=== PATIENT | female | born 1975 | race Caucasian/White ===

== ENCOUNTER 2020-03-11 14:14 | Outpatient (CLI) | payer MEDICARE, MEDICAID, SELFPAY ==
--- NOTE | ~2020-03-11 | XR_ITS ---
EXAMINATION: XR lumbar spine 2-3V DATE: 03/11/2020 14:59 INDICATION: Lumbar radiculopathy. TECHNIQUE: 3 views of lumbar spine were obtained. COMPARISON: Chest 2 views 01/07/2019 FINDINGS: There is 6 degrees levocurvature of lumbar spine. S1 is a transitional segment. Vertebral b andrea heights are normal. There is mildly decreased disc height at L4-L5 and severely decreased disc he ight at L5-S1. There is multilevel mild to moderate facet joint osteoarthritis. IMPRESSION: 1. Severe lower lumbar spondylosis. Reviewed, dictated and finalized at location B.
== END 2020-03-11 14:15 | disposition home or self-care (01) ==
LOC: CHSIMG 14:19
PROVIDERS: PCP Family Medicine; Visit Provider Family Medicine
DX: M54.16 Radiculopathy, lumbar region (principal)
CPT/HCPCS: 72100

== ENCOUNTER → 2020-03-20 12:05 | Outpatient (CLI) | payer MEDICARE, MEDICAID, SELFPAY ==
--- NOTE | ~2020-03-20 | MR_ITS ---
EXAMINATION: MR lumbar spine wo/w con DATE: 03/20/2020 13:45 INDICATION: Multiple sclerosis. Lumbar radiculopathy. TECHNIQUE: Magnetic resonance imaging (MRI) of the lumbar spine was performed without and with 18 mL Multihance intravenous contrast. Sequences included sagittal T2-weighted FSE, sagittal T2-weighted FS FSE, and sagittal and axial T1-weighted FSE. Postcontrast sequences included axial T2-weighted FSE, sagittal T1-weighted FSE, and axial and sagittal T1-weighted FS FSE. COMPARISON: Lumbar spine radiographs dated 03/11/2020 and chest radiograph dated 01/07/2019 FINDINGS: Transitional thoracolumbar and lumbosacral segments. The thoracolumbar segment which for purposes of this report will be designated T12 and has a hypoplastic right-sided riblet. Lumbosacral segment whic h for purposes of this report will be designated S1 is lumbarized on the right. There are 4 interveni ng nonrib-bearing lumbar segments, L2-L5. 1 mm retrolisthesis L2 on L3, 2 mm retrolisthesis L3 on L4 and 1-2 mm retrolisthesis L4 on L5. Vertebral body heights are normal. Mild disc height loss at L4-L5 with right-sided fibrovascular degenerative endplate changes. Severe disc height loss at L5-S1 with fibrofatty degenerative endplate changes. The more cephalad discs are normal. Otherwise normal marrow signal. The conus medullaris terminates at L1-L2. There is normal signal in the caudal spinal cord. No abnormally enhancing cord lesions identified. There is mild feathery muscular edema and enhancemen t in the right posterior paraspinal musculature at the level of L3-L4. The following disc levels are specifically discussed: L1-L2: The disc does not extend beyond the endplate margin. There is minimal bilateral facet joint os teoarthritis. There is no neural foraminal stenosis. There is no central canal stenosis. L2-L3: The disc does not extend beyond the endplate margin. There is minimal left and mild right face t joint osteoarthritis. There is no neural foraminal stenosis. There is no central canal stenosis. L3-L4: Small left foraminal disc protrusion. There is mild left and mild to moderate right facet join t osteoarthritis. There is mild left neural foraminal stenosis. There is no central canal stenosis. L4-L5: Disc is mildly bulging with superimposed disc extrusion which extends from the left paracentra l to the right foraminal zone with disc material extending approximately 3 mm cephalad and caudal to the level of the endplates. There is mild bilateral facet joint osteoarthritis. There is mild left an d mild to moderate right neural foraminal stenosis. There is moderate central canal stenosis. There i s narrowing of the lateral recesses, right greater than left with compression of the traversing right L5 nerve root and mild mass effect upon the traversing left L5 nerve root. L5-S1: Disc is bulging with annular fissure. There is mild right and mild to moderate left facet join t osteoarthritis. There is moderate bilateral neural foraminal stenosis. There is mild central canal stenosis along with narrowing of the left and right lateral recesses mild mass effect upon the dayanara sing bilateral S1 nerve roots. IMPRESSION: 1. Transitional thoracolumbar and lumbosacral segments. For purposes of this report numbered T12 and S1. 2. Moderate to severe lower lumbar spondylosis including large disc extrusion at L4-L5 which compress es the traversing right L5 nerve root. Correlate clinically for muscle weakness of great toe extensio n and sensory change of the medial foot and great toe. Less severe mass effect upon the left L5 and b ilateral S1 nerve roots. 3. No cord lesions identified on either pre or postcontrast sequences. 4. Nonspecific mild mesenteric edema and enhancement in the right paraspinal musculature at the level of L4-L5. Correlate for history of either muscle strain, trauma or injection at this location. Alter
[2020-03-20 12:48] LABS: Estimated Glomerular Filt Rate > 60
== END ==
PROVIDERS: Visit Provider Internal Medicine
DX: G35 Multiple sclerosis (principal); M47.26 Other spondylosis with radiculopathy, lumbar region
CPT/HCPCS: 72158; A9577

== ENCOUNTER 2020-04-10 13:19 | Outpatient (CLI) | payer MEDICARE, MEDICAID, SELFPAY ==
--- NOTE | ~2020-04-10 | XR_ITS ---
EXAMINATION: XR hip RT min 2V DATE: 04/10/2020 14:00 INDICATION: Right hip pain. TECHNIQUE: 2 views of right hip were obtained. COMPARISON: None. FINDINGS: Bone alignment is normal. No fracture. There is mild right hip osteoarthritis. There is sev ere lumbar spondylosis. IMPRESSION: 1. Mild right hip osteoarthritis. Reviewed, dictated and finalized at location A.
== END 2020-04-10 13:20 | disposition home or self-care (01) ==
LOC: CHSIMG 13:23
PROVIDERS: PCP Internal Medicine; Visit Provider Internal Medicine
DX: R10.2 Pelvic and perineal pain (principal)
CPT/HCPCS: 73502

== ENCOUNTER 2020-04-12 08:36 | Outpatient (CLI) | payer MEDICARE, MEDICAID, SELFPAY ==
--- NOTE | ~2020-04-12 | CT_ITS ---
EXAMINATION: CT pelvis w con DATE: 04/12/2020 09:39 INDICATION: Right-sided pelvic pain TECHNIQUE: Computed tomography (CT) of the pelvis was performed with 100 cc Omnipaque 350 intravenous contrast. The dose-length product was 834.53 mGy-cm. Automated exposure control and iterative recons truction technique were employed. COMPARISON: None FINDINGS: There is free fluid in the pelvic cul-de-sac, likely physiologic. Bowel pattern is nonobstr uctive. No significant vascular abnormality. No lymphadenopathy. Bladder is unremarkable. There is mi ld endometrial thickening. No free air. Mild osteoarthritis of the hips. There is lower lumbar spondy losis. IMPRESSION: 1. No acute abnormality of the pelvis. Free fluid in the pelvic cul-de-sac, likely physiologic. Reviewed, dictated and finalized at location A. IMPRESSION: 1. No acute abnormality of the pelvis. Free fluid in the pelvic cul-de-sac, lik dejuan physiologic.
== END 2020-04-12 08:37 | disposition home or self-care (01) ==
LOC: CHSIMG 08:38
PROVIDERS: PCP Internal Medicine; Visit Provider Internal Medicine
DX: R10.2 Pelvic and perineal pain (principal); M25.551 Pain in right hip
CPT/HCPCS: 72193; Q9965

== ENCOUNTER 2020-08-29 09:56 | Outpatient (CLI) | payer MEDICARE, SELFPAY ==
[2020-08-29 11:05] LABS: SARS-CoV-2 Ag Negative (Negative)
[2020-08-30 18:19] LABS: SARS-CoV-2 RNA PCR Negative
== END 2020-08-29 09:57 | disposition home or self-care (01) ==
LOC: CHSLAB 10:32
PROVIDERS: PCP Internal Medicine; Visit Provider Internal Medicine
DX: Z20.822 Contact with and (suspected) exposure to COVID-19 (principal)
CPT/HCPCS: 87426; C9803; U0003; U0005

== ENCOUNTER 2020-09-16 08:57 | Outpatient (CLI) | payer MEDICARE, SELFPAY ==
[2020-09-16 22:12] LABS: SARS-CoV-2 RNA PCR Negative
== END 2020-09-16 08:58 | disposition home or self-care (01) ==
LOC: CHSLAB 08:58
PROVIDERS: PCP Internal Medicine; Visit Provider Internal Medicine
DX: Z20.822 Contact with and (suspected) exposure to COVID-19 (principal)
CPT/HCPCS: C9803; U0003; U0005

== ENCOUNTER 2020-09-28 13:50 | Emergency (ER) | payer MEDICARE, MEDICAID, SELFPAY ==
--- NOTE | ~2020-09-28 | CT_ITS ---
EXAMINATION: CT brain wo con DATE: 09/28/2020 14:57 INDICATION: Headache TECHNIQUE: Computed tomography (CT) of the head was performed without intravenous contrast. The dose- length product was 605.33 mGy-cm. Automated exposure control and iterative reconstruction technique w ere employed. COMPARISON: None FINDINGS: Generalized atrophy. There are scattered moderate periventricular and subcortical white mat ter changes. Consider the patient's age, consider demyelinating disease such as multiple sclerosis. N o ventriculomegaly or midline shift. Paranasal sinuses and mastoids are pneumatized. No depressed sku ll fractures. No acute infarction, hemorrhage or mass. Midline sagittal images are unremarkable. IMPRESSION: 1. Periventricular and subcortical white matter changes, suspicious for demyelinating disorder such a s multiple sclerosis given the patient's age. Correlate clinically. Consider correlation with MRI on a nonemergent basis. 2: No acute intracranial abnormality. Reviewed, dictated and finalized at location A. HOSE CUTTER IMPRESSION: 1. Periventricular and subcortical white matter changes, suspicious for demyeli nating disorder such as multiple sclerosis given the patient's age. Correlate c linically. Consider correlation with MRI on a nonemergent basis. 2: No acute intracranial abnormality.
[2020-09-28 13:58] VITALS: BP 119/75; PULSE 83; RESP 20; TEMP 36.7; O2SAT 95
[2020-09-28 14:45] LABS: Basophils Absolute Auto 0.1 K/mm3 (0.0-0.1); Basophils Percent Auto 0.4 % (0.2-1.2); Eosinophils Absolute Auto 0.1 K/mm3 (0-0.3); Eosinophils Percent Auto 0.2 % (0-4.4); Hematocrit 38.1 % (37.0-47.0); Hemoglobin 12.7 g/dL (12.0-15.0); Immature Granulocyte Absolute 0.19 K/mm3 (0.00-0.031); Immature Granulocyte Percent A 0.8 % (0-0.5); Lymphocytes Absolute Auto 1.54 K/mm3 (0.9-3.2); Lymphocytes Percent Auto 6.3 % (18.3-44.2); Mean Corpuscular HGB Conc 33.3 g/dl (32-36); Mean Corpuscular Hemoglobin 30.8 pg (26-34); Mean Corpuscular Volume 92.5 fl (80-100); Mean Platelet Volume 9.9 fl (7.4-10.4); Monocytes Absolute Auto 1.6 K/mm3 (0.1-0.6); Monocytes Percent Auto 6.6 % (2.6-8.5); Neutrophils Percent Auto 85.7 % (45.5-73.1); Platelet Count Result 328 k/mm3 (150-375); Red Blood Count 4.12 M/mm3 (4.2-5.4); Red Cell Distribution Width 13.8 % (11.5-14.5); White Blood Count 24.5 K/mm3 (4.5-10.0)
[2020-09-28 14:57] LABS: Alanine Aminotransferase 27 U/L (4-35); Alkaline Phosphatase 63 U/L (38-126); Anion Gap 7 mmol/L (8-16); Aspartate Amino Transferase 24 U/L (14-36); Bilirubin,Total 0.5 mg/dL (0.2-1.3); Blood Urea Nitrogen 15 mg/dL (7-17); Calcium 8.5 mg/dL (8.4-10.2); Carbon Dioxide 26 mmol/L (22-30); Chloride 107 mmol/L (98-107); Estimated CRCL calculation 118 ml/min; Estimated Glomerular Filt Rate > 60; Glucose 113 mg/dL (65-105); Potassium 3.4 mmol/L (3.4-5.0); Sodium 140 mmol/L (137-145)
[2020-09-28] MEDS: KETOROLAC 30 MG/ML VIAL (*BKC) IV PUSH (15:18)
[2020-09-28] MEDS: ONDANSETRON INJ 4 MG/2 ML VIAL IV PUSH (15:19)
[2020-09-28] MEDS: SODIUM CHLORIDE 0.9% IV 1,000 ML 150 ML IV CONT (15:19)
[2020-09-28 15:21] LABS: Add Urine Microscopic? YES; Appearance Urine Clear (Clear); Bilirubin Urine Negative (Negative); Blood Urine Negative (Negative); Color Urine Yellow (Yellow); Glucose Urine UA Negative (Negative); Ketones Urine Negative (Negative); Leukocyte Esterase Ur Negative LEU/UL (Negative); Mucus Urine Rare /lpf; Nitrate Urine Negative (Negative); Protein Urine 1+ mg/dL (Negative); RBC Urine 0-2 /hpf (0-2); Specific Grav Ur 1.024 (1.001-1.035); Squamous Epithelial Cell Urine Rare /hpf (Few); Urobilinogen Urine Negative mg/dL (<2.0); WBC Urine 0-3 /hpf
[2020-09-28 15:44] VITALS: BP 108/68; PULSE 71; RESP 14; O2SAT 93
[2020-09-28 15:48] VITALS: TEMP 36.7
[2020-09-28] MEDS: MORPHINE SULFATE (*CRX) 4 MG/ML INJ IV PUSH (16:09)
[2020-09-28] MEDS: SODIUM CHLORIDE 0.9% IV 1,000 ML 999 ML IV CONT (16:10)
[2020-09-28 16:39] VITALS: TEMP 36.7
--- NOTE | 2020-09-28 17:30 | ED.GENADULT ---
HPI - General Adult General Chief complaint: Headache Stated complaint: fever since last night, threw up x1 Time Seen by Provider: 09/28/20 14:18 Source: patient and family Mode of arrival: ambulatory Limitations: no limitations History of Present Illness HPI narrative: 45-year-old with a history of MS here with a complaint of headache with nausea vomiting. Patient states that she had received epidural block on September 20 at [facility] in [facility] since yesterday been having headaches , pt states gets worse when she is sitting up.she denies any fever . Related Data Home Medications Medication Instructions Recorded Confirmed albuterol sulfate [ProAir HFA] 2 puff INHALATION QID PRN 09/28/20 baclofen 10 mg PO TID 09/28/20 bupropion HCl 300 mg PO QAM 09/28/20 cephalexin 250 mg PO HS 09/28/20 clonazepam 0.5 mg PO TID 09/28/20 dalfampridine [Ampyra] 10 mg PO Q12H 09/28/20 fludrocortisone 0.2 mg PO BID 09/28/20 fluoxetine 120 mg PO DAILY 09/28/20 gabapentin 300 mg PO QID 09/28/20 lorazepam 0.5 mg PO TID PRN 09/28/20 methylphenidate HCl 20 mg PO TID 09/28/20 mirtazapine 60 mg PO HS 09/28/20 montelukast 10 mg PO HS 09/28/20 oxybutynin chloride 15 mg PO DAILY 09/28/20 oxycodone-acetaminophen 1 tablet PO Q6H PRN 09/28/20 pregabalin [Lyrica] 100 mg PO TID 09/28/20 tamsulosin 0.8 mg PO DAILY 09/28/20 tizanidine 4 mg PO TID 09/28/20 topiramate 25 mg PO BID 09/28/20 Allergies Allergy/AdvReac Type Severity Reaction Status Date / Time No Known Allergies Allergy Verified 09/28/20 14:03 Review of Systems Review of Systems: All systems reviewed & are unremarkable except as noted in HPI and below Constitutional: Constitutional: Reports no additional constitutional complaints Eyes: Eyes: Reports no additional eye complaints ENT: Reports system reviewed and no additional complaints, except as documented Cardiovascular: Cardiovascular: Reports no additional cardiovascular complaints Respiratory: Respiratory: Reports no additional respiratory complaints Gastrointestinal: Gastrointestinal: Reports no additional gastrointestinal complaints Genitourinary: Genitourinary: Reports no additional female genitourinary complaints Musculoskeletal: Musculoskeletal: Reports no additional musculoskeletal complaints Neurologic: Reports as per [facility] Social History Social History Gender identity (if verbalized by the patient): Female Exam Narrative: Exam Narrative: GENERAL: Well-appearing, well-nourished, and in no acute distress. HEAD: Normocephalic, atraumatic. EYES: PERRLA and EOMI. ENT: Nares clear, no rhinorrhea or epistaxis. Mucous membranes moist. NECK: Supple. CHEST: Clear to auscultation. No respiratory distress. HEART: Regular rate and rhythm. No murmur heard. Normal peripheral pulses. ABDOMEN: Soft, nontender, nondistended, normal active bowel sounds. EXTREMITIES: Normal range of motion. No edema. SKIN: Warm, dry, no rash. NEURO: No focal deficits. Alert and oriented x3. PSYCH: Normal mood and affect. Course Course Emergency Course: I discussed with Dr. Domo krueger informed him about the lab work patient did receive about 80 mg of steroids with epidural lab most likely her elevation of white count could be from the steroid , patient did feel better after 2 L of IV fluid and pain medication. He said he will follow with the patient on Wednesday in his office. Vital Signs Vital signs: Vital Signs Temperature 36.7 C 09/28/20 13:58 Pulse Rate 83 09/28/20 13:58 Respiratory Rate 20 09/28/20 13:58 Blood Pressure 119/75 09/28/20 13:58 Pulse Oximetry 95 09/28/20 13:58 Temperature 36.7 C 09/28/20 16:39 Pulse Rate 71 09/28/20 17:32 Respiratory Rate 16 09/28/20 17:32 Blood Pressure 111/72 09/28/20 17:32 Pulse Oximetry 95 09/28/20 17:32 Medical Decision Making MDM Narrative Medical decision
[2020-09-28 17:32] VITALS: BP 111/72; PULSE 71; RESP 16; O2SAT 95
== END 2020-09-28 17:56 | disposition home or self-care (01) ==
PROVIDERS: Emergency Provider Family Medicine; PCP Internal Medicine
DX: R51.9 Headache, unspecified (principal); D72.829 Elevated white blood cell count, unspecified; G35 Multiple sclerosis
CPT/HCPCS: 36415; 51701; 70450; 80053; 81001; 85025; 96361; 96374; 96375; 99284; J1100; J1885; J2270; J2405; J7030

== ENCOUNTER 2020-10-17 09:26 | Outpatient (CLI) | payer MEDICARE, MEDICAID, SELFPAY ==
--- NOTE | ~2020-10-17 | XR_ITS ---
XR chest 2V 10/17/2020 09:55 Indication: Pneumonia follow-up Procedure: 2 view chest Comparison: 01/07/2019 Findings: There is right middle lobe atelectasis. No focal pneumonia, pleural effusion, edema or pneu mothorax. No acute osseous abnormality. Heart size is normal. Impression: 1: Right middle lobe atelectasis. Reviewed, dictated and finalized at location B. Impression: 1: Right middle lobe atelectasis.
[2020-10-17 09:39] LABS: Basophils Absolute Auto 0.11 K/mm3 (0.00-0.10); Basophils Percent Auto 1.5 % (0.0-1.0); Eosinophils Percent Auto 2.8 % (1.0-6.0); Hematocrit 37.5 % (35.0-49.0); Hemoglobin 11.8 g/dL (12.0-15.0); Immature Granulocyte Absolute 0.01 K/mm3 (0.00-0.00); Immature Granulocyte Percent A 0.1 % (0.0-0.0); Lymphocytes Absolute Auto 2.91 K/mm3 (1.10-4.50); Lymphocytes Percent Auto 40.8 % (18.0-42.0); Mean Corpuscular HGB Conc 31.5 g/dL (32.0-36.0); Mean Corpuscular Hemoglobin 29.8 pg (27.0-31.0); Mean Corpuscular Volume 94.7 fL (78.0-102.0); Mean Platelet Volume 9.1 fl (9.2-11.8); Monocytes Absolute Auto 0.62 K/mm3 (0.10-0.90); Monocytes Percent Auto 8.7 % (2.0-11.0); Neutrophils Absolute Auto 3.3 K/mm3 (1.7-7.2); Neutrophils Percent Auto 46.1 % (50.0-70.0); Platelet Count Result 442 K/mm3 (150-420); Red Blood Count 3.96 M/mm3 (4.20-5.40); Red Cell Distribution Width 13.6 % (11.6-14.4); White Blood Count 7.1 K/mm3 (4.8-10.8)
[2020-10-17 10:22] LABS: Alanine Aminotransferase 47 U/L (14-59); Albumin Level 3.6 g/dL (3.4-5.0); Alkaline Phosphatase 89 U/L (46-116); Anion Gap 8 mmol/L (8-16); Aspartate Amino Transferase 19 U/L (15-37); Bilirubin,Total 0.3 mg/dL (0.00-1.00); Blood Urea Nitrogen 12 mg/dL (7-18); Calcium 8.6 mg/dL (8.5-10.1); Carbon Dioxide 27 mmol/L (21-32); Chloride 105 mmol/L (98-108); Estimated Glomerular Filt Rate > 60; Glucose 82 mg/dL (70-99); Osmolality Calculated 288 mOsm/kg (285-295); Potassium 4.2 mmol/L (3.5-5.1); Sodium 140 mmol/L (136-145); Total Protein 6.9 g/dL (6.4-8.2)
== END 2020-10-17 09:27 | disposition home or self-care (01) ==
LOC: CHSIMG 09:30
PROVIDERS: PCP Internal Medicine; Visit Provider Internal Medicine
DX: J18.9 Pneumonia, unspecified organism (principal)
CPT/HCPCS: 36415; 71046; 80053; 85025

== ENCOUNTER 2020-10-22 08:23 | Outpatient (CLI) | payer MEDICARE, MEDICAID, SELFPAY ==
--- NOTE | ~2020-10-22 | XR_ITS ---
EXAMINATION: XR barium swallow DATE: 10/22/2020 09:09 INDICATION: Aspiration pneumonia. Multiple sclerosis. TECHNIQUE: The patient drank thick barium, gas-producing crystals, and thin barium. Fluoroscopic spot radiographs of the hypopharynx and esophagus were obtained. Fluoroscopy exposure time was minutes. COMPARISON: None. FINDINGS: There is premature spillage of contrast into the hypopharynx with pooling of contrast in th e vallecula and piriform sinuses prior to the swallow. Recurrent transient laryngeal penetration garth g the posterior margin of the epiglottis which remains above the vocal cords without aspiration. The esophagus is normal without mass or stricture. Esophageal motility is within normal limits. There is no hiatal hernia. There was no gastroesophageal reflux with provocative maneuvers. IMPRESSION: 1. Mild oropharyngeal dysphagia with premature spillage of contrast and recurrent transient laryngeal penetration without aspiration. Would consider dedicated modified barium swallow study performed by the department of speech pathology for further evaluation including assessment with different consist encies as well as possible swallow modification techniques which may reduce the risk of aspiration. 2. Otherwise unremarkable esophagram with normal esophageal motility, no hiatal hernia and no gastroe sophageal reflux. Reviewed, dictated and finalized at location B. IMPRESSION: 1. Mild oropharyngeal dysphagia with premature spillage of contrast and recurre nt transient laryngeal penetration without aspiration. Would consider dedicated modified barium swallow study performed by the department of speech pathology for further evaluation including assessment with different consistencies as wel l as possible swallow modification techniques which may reduce the risk of aspi ration. 2. Otherwise unremarkable esophagram with normal esophageal motility, no hiatal hernia and no gastroesophageal reflux.
== END 2020-10-22 08:24 | disposition home or self-care (01) ==
LOC: CHSIMG 08:26
PROVIDERS: PCP Internal Medicine; Visit Provider Internal Medicine
DX: G35 Multiple sclerosis (principal); R13.12 Dysphagia, oropharyngeal phase
CPT/HCPCS: 74220

== ENCOUNTER 2021-11-21 10:21 | Outpatient (CLI) | payer MEDICARE, MEDICAID, SELFPAY ==
--- NOTE | ~2021-11-21 | XR_ITS ---
XR chest 2V DATE: 11/21/2021 11:09 INDICATION: Fever, cough, congestion for 3 days TECHNIQUE: PA and lateral views COMPARISON: 10/17/2020 2 view chest FINDINGS: Normal heart size. Mild aortic unfolding. No hilar or mediastinal enlargement. No pulmonary infiltrate or consolidation, pleural effusion or pulmonary vascular congestion or pneumo thorax is detected. IMPRESSION: No active cardiopulmonary disease Reviewed, dictated and finalized at location A.
[2021-11-21 11:23] LABS: Basophils Absolute Auto 0.05 K/mm3 (0.00-0.10); Basophils Percent Auto 0.7 % (0.0-1.0); Eosinophils Absolute Auto 0.13 K/mm3 (0.02-0.50); Eosinophils Percent Auto 1.8 % (1.0-6.0); Hematocrit 37.5 % (35.0-49.0); Immature Granulocyte Absolute 0.03 K/mm3 (0.00-0.00); Immature Granulocyte Percent A 0.4 % (0.0-0.0); Lymphocytes Absolute Auto 1.91 K/mm3 (1.10-4.50); Lymphocytes Percent Auto 26.5 % (18.0-42.0); Mean Corpuscular Hemoglobin 31.3 pg (27.0-31.0); Mean Corpuscular Volume 97.9 fL (78.0-102.0); Mean Platelet Volume 9.9 fl (9.2-11.8); Monocytes Absolute Auto 0.65 K/mm3 (0.10-0.90); Neutrophils Absolute Auto 4.4 K/mm3 (1.7-7.2); Neutrophils Percent Auto 61.6 % (50.0-70.0); Platelet Count Result 349 K/mm3 (150-420); Red Blood Count 3.83 M/mm3 (4.20-5.40); Red Cell Distribution Width 14.2 % (11.6-14.4); White Blood Count 7.2 K/mm3 (4.8-10.8)
[2021-11-21 11:27] LABS: Add Urine Microscopic? YES; Appearance Urine Slightly Cloudy (Clear); Bilirubin Urine Negative (Negative); Blood Urine 3+ (Negative); Color Urine Light Yellow (Yellow); Glucose Urine UA Negative (Negative); Ketones Urine Negative (Negative); Leukocyte Esterase Ur Negative (Negative); Nitrate Urine Negative (Negative); Protein Urine Negative (Negative); Specific Grav Ur <= 1.005 (1.010-1.020); Urobilinogen Urine 0.2 mg/dL (0.2-1.0)
[2021-11-21 11:37] LABS: Bacteria Urine Trace /hpf; RBC Urine 21-50 /hpf (0-2); Squamous Epithelial Cell Urine Occasional /hpf (Few); WBC Urine None seen /hpf (0-3)
[2021-11-21 11:46] LABS: Alanine Aminotransferase 18 U/L (14-59); Albumin Level 3.4 g/dL (3.4-5.0); Alkaline Phosphatase 91 U/L (46-116); Anion Gap 10 mmol/L (8-16); Aspartate Amino Transferase 15 U/L (15-37); Bilirubin,Total 0.2 mg/dL (0.00-1.00); Blood Urea Nitrogen 10 mg/dL (7-18); Calcium 8.3 mg/dL (8.5-10.1); Carbon Dioxide 23 mmol/L (21-32); Chloride 106 mmol/L (98-108); Estimated Glomerular Filt Rate > 60; Glucose 89 mg/dL (70-99); Osmolality Calculated 286 mOsm/kg (285-295); Potassium 3.3 mmol/L (3.5-5.1); Sodium 139 mmol/L (136-145); Total Protein 6.9 g/dL (6.4-8.2)
[2021-11-21 11:59] LABS: Influenza A QL RT-PCR Negative (Negative); Influenza B QL RT-PCR Negative (Negative); SARS-CoV-2 RNA PCR Negative (Negative)
== END 2021-11-21 10:22 | disposition home or self-care (01) ==
LOC: CHSLAB 10:23
PROVIDERS: PCP Internal Medicine; Visit Provider Nurse Practitioner Family
DX: J06.9 Acute upper respiratory infection, unspecified (principal); R32 Unspecified urinary incontinence; Z20.822 Contact with and (suspected) exposure to COVID-19
CPT/HCPCS: 36415; 71046; 80053; 81001; 85025; 87086; 87502; C9803; U0003; U0005

== ENCOUNTER 2022-05-16 12:40 | Emergency (ER) | payer MEDICARE, MEDICAID, SELFPAY ==
[2022-05-16 13:20] VITALS: BP 109/75; PULSE 93; RESP 16; TEMP 36.6; O2SAT 99
--- NOTE | 2022-05-16 15:20 | ED.FEMALEGU ---
HPI - Female Genitourinary General Chief complaint: Urogenital-Female Stated complaint: Urinary Problem Time Seen by Provider: 05/16/22 15:00 Source: patient, RN notes reviewed and old records reviewed Mode of arrival: other (ambulatory with walker) Limitations: no limitations History of Present Illness HPI Narrative: 47-year-old female who [facility] her urine recheck it he she had been on 6 days of Macrobid and still continues to have burning with urination would like to have her urine checked to see if infection has cleared. Patient continues to have burning, denies any odor, frequency urgency or fevers.Patient denies any fevers, chills or ausea, no CVA tenderness MD elicited complaint: UTI Onset (ago): day(s) (started on Macrobid 05/11/2022) Related Data Home Medications Medication Instructions Recorded Confirmed albuterol sulfate 90 mcg/actuation 2 puff inhalation QID PRN 09/28/20 05/16/22 aerosol inhaler (ProAir HFA) Shortness Of Breath baclofen 10 mg tablet 10 mg PO TID 09/28/20 05/16/22 bupropion HCl 300 mg 24 hr tablet, 300 mg PO QAM 09/28/20 05/16/22 extended release clonazepam 0.5 mg tablet 0.5 mg PO TID 09/28/20 05/16/22 dalfampridine 10 mg 10 mg PO Q12H 09/28/20 05/16/22 tablet,extended release,12 hr (Ampyra) fludrocortisone 0.1 mg tablet 0.2 mg PO BID 09/28/20 05/16/22 fluoxetine 40 mg capsule 120 mg PO DAILY 09/28/20 05/16/22 lorazepam 0.5 mg tablet 0.5 mg PO TID PRN Anxiety 09/28/20 05/16/22 methylphenidate HCl 20 mg tablet 20 mg PO TID 09/28/20 05/16/22 mirtazapine 30 mg tablet 60 mg PO HS 09/28/20 05/16/22 montelukast 10 mg tablet 10 mg PO HS 09/28/20 05/16/22 oxybutynin chloride 15 mg 15 mg PO DAILY 09/28/20 05/16/22 tablet,extended release 24 hr oxycodone-acetaminophen 7.5 mg-325 1 tablet PO Q6H PRN Pain 09/28/20 05/16/22 mg tablet pregabalin 100 mg capsule (Lyrica) 100 mg PO TID 09/28/20 05/16/22 tamsulosin 0.4 mg capsule 0.8 mg PO DAILY 09/28/20 05/16/22 tizanidine 4 mg capsule 4 mg PO TID 09/28/20 05/16/22 topiramate 25 mg tablet 25 mg PO BID 09/28/20 05/16/22 gabapentin 300 mg capsule 300 mg PO QID 05/16/22 05/16/22 Allergies Allergy/AdvReac Type Severity Reaction Status Date / Time No Known Allergies Allergy Verified 05/16/22 13:48 Review of Systems Review of Systems: CONSTITUTIONAL: Denies fever, chills, or sweats. CARDIOVASCULAR: Denies chest pain, palpitations, or edema. RESPIRATORY: Denies cough or dyspnea. GASTROINTESTINAL: Denies abdominal pain, nausea, vomiting, or diarrhea. GENITOURINARY: Reports dysuria, no frequency, urgency. Denies flank pain or hematuria. SKIN: Denies rash or itching. MUSCULOSKELETAL: Denies back pain or myalgia. Denies CVA tenderness NEUROLOGIC: Denies headache All systems reviewed & are unremarkable except as noted in HPI and below PMFSH Past Medical History Medical History Asthma Ataxia Multiple sclerosis Tremors of nervous system Surgical History Surgical History History of carpal tunnel surgery Hx of tonsillectomy [place] teeth removed Family History Family History Father Cancer Mother Thyroid disorder Sibling Asthma Diabetes mellitus Hypertension Depression Thyroid disorder Grandparent Heart disease Social History Social History Smoking status: Former smoker Alcohol intake: never Substance use: never Gender identity (if verbalized by the patient): Female Comments At time of signature, agree with nursing past medical, surgical, social and family history. There is no relevant family history pertinent to the presenting complaint Exam Narrative: GENERAL: Well-appearing, well-nourished, and in no acute distress. HEAD: Normocephalic, atraumatic. NECK: Supple. No
== END 2022-05-16 15:30 | disposition home or self-care (01) ==
PROVIDERS: Emergency Provider Registered Nurse
DX: R30.0 Dysuria (principal); Z87.891 Personal history of nicotine dependence; J45.909 Unspecified asthma, uncomplicated; G35 Multiple sclerosis
CPT/HCPCS: 81003; 87086; 87088; 99213; G0463

== ENCOUNTER 2022-11-27 11:10 | Outpatient (CLI) | payer MEDICARE, MEDICAID, SELFPAY ==
[2022-11-27 11:33] LABS: Basophils Absolute Auto 0.06 K/mm3 (0.00-0.10); Basophils Percent Auto 1.1 % (0.0-1.0); Eosinophils Absolute Auto 0.17 K/mm3 (0.02-0.50); Eosinophils Percent Auto 3.1 % (1.0-6.0); Hematocrit 35.9 % (35.0-49.0); Hemoglobin 11.9 g/dL (12.0-15.0); Lymphocytes Absolute Auto 2.22 K/mm3 (1.10-4.50); Lymphocytes Percent Auto 40.1 % (18.0-42.0); Mean Corpuscular HGB Conc 33.1 g/dL (32.0-36.0); Mean Corpuscular Hemoglobin 31.1 pg (27.0-31.0); Mean Corpuscular Volume 93.7 fL (78.0-102.0); Mean Platelet Volume 9.1 fl (9.2-11.8); Monocytes Absolute Auto 0.46 K/mm3 (0.10-0.90); Monocytes Percent Auto 8.3 % (2.0-11.0); Neutrophils Absolute Auto 2.6 K/mm3 (1.7-7.2); Neutrophils Percent Auto 47.4 % (50.0-70.0); Platelet Count Result 281 K/mm3 (150-420); Red Blood Count 3.83 M/mm3 (4.20-5.40); Red Cell Distribution Width 13.3 % (11.6-14.4); White Blood Count 5.5 K/mm3 (4.8-10.8)
[2022-11-27 12:27] LABS: Alanine Aminotransferase 26 U/L (14-59); Alkaline Phosphatase 54 U/L (46-116); Anion Gap 10 mmol/L (8-16); Aspartate Amino Transferase 17 U/L (15-37); Bilirubin,Total 0.3 mg/dL (0.00-1.00); Blood Urea Nitrogen 8 mg/dL (7-18); Calcium 8.8 mg/dL (8.5-10.1); Carbon Dioxide 26 mmol/L (21-32); Chloride 107 mmol/L (98-108); Estimated Glomerular Filt Rate > 60; Free T3 2.32 pg/mL (2.18-3.98); Glucose 101 mg/dL (70-99); Osmolality Calculated 294 mOsm/kg (285-295); Potassium 3.4 mmol/L (3.5-5.1); Sodium 143 mmol/L (136-145); Thyroid Stimulating Hormone 0.89 uIU/mL (0.36-3.74); Total Protein 6.7 g/dL (6.4-8.2); Vitamin B12 416 pg/mL (193-986)
[2022-12-02 04:55] LABS: FSH 86.1 mIU/mL (***); LH 34.4 mIU/mL (***); Prolactin 7.6 ng/mL (***)
[2022-12-08 08:31] LABS: Estrogen 107.4 pg/mL
== END 2022-11-27 11:11 | disposition home or self-care (01) ==
LOC: CHSLAB 11:14
PROVIDERS: PCP Internal Medicine; Visit Provider Internal Medicine
DX: R06.00 Dyspnea, unspecified (principal); E53.8 Deficiency of other specified B group vitamins; N91.2 Amenorrhea, unspecified
CPT/HCPCS: 36415; 80053; 82607; 82672; 83001; 83002; 83498; 84146; 84439; 84443; 84481; 85025

== ENCOUNTER 2022-12-10 07:48 | Outpatient (CLI) | payer MEDICARE, MEDICAID, SELFPAY ==
--- NOTE | ~2022-12-10 | XR_ITS ---
MODIFIED ESOPHAGRAM HISTORY: Dysphagia. Multiple sclerosis. TECHNIQUE: Modified barium esophagram was performed by speech pathologist under radiologist fluorosco pic guidance. This was recorded on tape. The exam was reviewed on 12/10/2022 11:36 CDT. The DAP for this procedure was 1.2 Gycm2. Fluoroscopy time is 1.9 minutes. FINDINGS: During the oral stage of swallowing there is weak labial seal. Otherwise the oral stage i s within normal limits. During pharyngeal stage of swallowing there is reduced laryngeal elevation, t ongue base retraction with evidence of laryngeal penetration with thin liquids. No aspiration.. IMPRESSION: 1: Laryngeal penetration with thin liquid during one episode. No aspiration visualized. 2: Please refer to speech pathologist report for additional detail. Reviewed, dictated and finalized at location L. IMPRESSION: 1: Laryngeal penetration with thin liquid during one episode. No aspiration vis ualized. 2: Please refer to speech pathologist report for additional detail.
--- NOTE | 2022-12-10 10:57 | REHSTMBS ---
Assessment and note entered by Larissa Mcintosh, MEDICAL EQUIPMENT REPAIR TECHNICIAN Modified Barium Swallow Evaluation Diagnosis MS, Dysphagia Subjective Information Patient reported that she has been having difficulty swallowing for years. She feels that the problem has recently gotten worse and she has been having choking episodes 1 time per week. Patient reported that she primarily has difficulty with tough textured foods including; raw vegetables, tough textured meats, nuts, breads. Patient reported that she never eats alone because she cannot anticipate having a difficulty due to variable occurrence and consistency of food. Feeding Type Recommended Oral Food Consistency Regular, Easy to Chew (7) Liquid Consistency Thin (0) Treatment Recommendations Bolus Control Exercise,Effortful Swallow,Laryngeal Elevation Ex,Tongue Base Exercise,Vocal Fold Adduction Ex. ST Clinical Summary Patient was referred for an modified barium swallow study by her primary physician due to increased difficulties swallowing solid foods. Patient reported that she has had difficulty swallowing for many years but has noticed an increase in choking recently. Patient reported that she has a choking episode on solids 1x per week. Patient was given trials of thin barium via cup, pudding, and blanco cracker (1/4 piece of cracker) during the study. Patient presented with no aspiration throughout the testing. Patient presented with coughing episode one time with thin barium but patient moved and result was not able to be seen through imaging. Patient reported that her coordination felt off through trialing chin tuck. Patient presented with laryngeal penetration (shallow) prior to the swallow with thin barium one time but it was cleared during swallow. Patient tolerated trials of pudding and blanco cracker with minimal residual stasis and no aspiration. Patient presented with delayed initiation of deglutition (4+ seconds) resulting in spillage to pyriform sinuses with thin fluids. Education with patient regarding results and compensatory techniques to utilize to improve airway protection (use of single small drinks for improved bolus control, alternation of food/fluid with 1:1 ratio for tough textured foods, effortful swallow to improve bolus clearance, upright posture during eating/drinking.) Education
== END 2022-12-10 07:49 | disposition home or self-care (01) ==
LOC: CHSIMG 07:49
PROVIDERS: PCP Internal Medicine; Visit Provider Internal Medicine
DX: R13.10 Dysphagia, unspecified (principal); R06.00 Dyspnea, unspecified; G35 Multiple sclerosis
CPT/HCPCS: 92611

== ENCOUNTER 2022-12-21 07:42 | Outpatient (CLI) | payer MEDICARE, MEDICAID, SELFPAY ==
--- NOTE | 2022-12-21 07:50 | ECHO_ITS ---
Patient Info Name: Zee Ortiz Age: 47 years : 1975 Gender: Female HR: 65 bpm BP: 151 / 65 mmHg Heart Rhythm: Sinus Rhythm Technical Quality: Good Exam Date: 12/21/2022 8:14 AM Exam Location: [facility] Patient Status: Outpatient Admit Date: 12/21/2022 Staff Ordering Physician: Jalen Avila MD [employer] Engineer: Trey Plummer RDCS Attending Provider: Jalen Avila MD Referring Physician: Austin RODAS; Exam Type: CA echo doppler color flow Study Info Indications - Dyspnea/MS Complete two-dimensional, color flow and Doppler transthoracic echocardiogram is performed. Summary 1. Complete two-dimensional, color flow and Doppler transthoracic echocardiogram is performed. 2. Left ventricular chamber dimension is normal. 3. Left ventricular systolic function is normal, estimated at 60-65%. 4. The left ventricular diastolic function is abnormal. 5. E/e' 13 is mildly elevated. 6. Left atrial chamber dimension is moderately enlarged. 7. Right atrial chamber dimension is mildly enlarged. 8. There is trace mitral valve regurgitation. 9. There is mild tricuspid valve regurgitation. 10. No pulmonary hypertension, estimated pulmonary arterial systolic pressure is 24 mmHg. Left Ventricle E/e' 13 is mildly elevated. Left ventricular chamber dimension is normal. Left ventricular systolic function is normal, estimated at 60-65%. The left ventricular diastolic function is abnormal. Right Ventricle Right ventricular chamber dimension is normal. Right ventricular systolic function is normal. Left Atria Left atrial chamber dimension is moderately enlarged. Right Atria Right atrial chamber dimension is mildly enlarged. Aortic Valve The aortic valve is trileaflet. There is no aortic valve stenosis. There is no aortic valve regurgitation. Pulmonic Valve There is no pulmonic regurgitation. Mitral Valve There is no mitral valve stenosis. There is trace mitral valve regurgitation. Tricuspid Valve There is mild tricuspid valve regurgitation. No pulmonary hypertension, estimated pulmonary arterial systolic pressure is 24 mmHg. Pericardium/Pleural There is no pericardial effusion. Inferior Vena Cava Normal inferior vena cava with >50% collapse upon inspiration consistent with normal right atrial pressure, 5 mmHg. Aorta The aortic root size at the sinus of Valsalva is normal. Left Ventricular Outflow Tract Name Value Normal LVOT 2D LVOT Diameter 2.0 cm LVOT Doppler LVOT Peak Velocity 92 cm/s LVOT Peak Gradient 3 mmHg LVOT Mean Gradient 2 mmHg LVOT VTI 26 cm LVOT VTI/AV VTI Ratio 0.9 LVOT Stroke Volume 83 ml Pulmonic Valve Name Value Normal RVOT Doppler RVOT Peak Gradient 1 mmHg PV Doppler
== END 2022-12-21 07:43 | disposition home or self-care (01) ==
LOC: CHSIMG 07:43
PROVIDERS: PCP Internal Medicine; Visit Provider Internal Medicine
DX: R13.10 Dysphagia, unspecified (principal); R06.00 Dyspnea, unspecified; G35 Multiple sclerosis; I51.7 Cardiomegaly
CPT/HCPCS: 93306

== ENCOUNTER 2023-02-04 09:35 | Outpatient (CLI) | payer MEDICARE, MEDICAID, SELFPAY ==
--- NOTE | ~2023-02-04 | XR_ITS ---
EXAMINATION: XR chest 2V DATE: 02/04/2023 11:16 INDICATION: Shortness of breath. TECHNIQUE: Frontal and lateral views of the chest were obtained on 3 radiographs. COMPARISON: Chest 2 views 11/21/2021 FINDINGS: The chest demonstrates clear lungs without pneumonia, pleural effusion, or pneumothorax. Th e heart size is normal. IMPRESSION: 1. No acute cardiopulmonary disease. Reviewed, dictated and finalized at location A.
== END 2023-02-04 09:36 | disposition home or self-care (01) ==
LOC: CHSCARD 09:36
PROVIDERS: PCP Internal Medicine; Visit Provider Internal Medicine
DX: R06.02 Shortness of breath (principal)
CPT/HCPCS: 71046; 94060; 94726; 94729